=== PATIENT | female | born 1995 | race Caucasian/White ===

== ENCOUNTER 2020-07-25 01:05 | Emergency (ER) | payer OTHER ==
[~2020-07-25] VITALS: Ht 160 cm; Wt 108.9 kg
[2020-07-25 01:13] VITALS: BP 114/68
== END 2020-07-25 02:08 | disposition home or self-care (01) ==
LOC: ER 01:15
DX: Z20.822 Contact with and (suspected) exposure to COVID-19 (principal)
CPT/HCPCS: 99283; C9803; U0003

== ENCOUNTER 2020-08-03 01:02 | Emergency (ER) | payer OTHER ==
[~2020-08-03] VITALS: Ht 160 cm; Wt 108.9 kg
[2020-08-03 01:04] VITALS: BP 132/64
== END 2020-08-03 01:32 | disposition home or self-care (01) ==
LOC: ER 01:04
DX: Z20.822 Contact with and (suspected) exposure to COVID-19 (principal)
CPT/HCPCS: 99283; C9803; U0003

== ENCOUNTER 2020-08-08 02:09 | Emergency (ER) | payer OTHER ==
[~2020-08-08] VITALS: Ht 160 cm; Wt 108.9 kg
[2020-08-08 02:15] VITALS: BP 125/61
== END 2020-08-08 02:37 | disposition home or self-care (01) ==
LOC: ER 02:09
DX: Z20.822 Contact with and (suspected) exposure to COVID-19 (principal)
CPT/HCPCS: 99283; C9803; U0003

== ENCOUNTER 2020-08-17 02:40 | Emergency (ER) | payer OTHER ==
[~2020-08-17] VITALS: Ht 160 cm; Wt 108.9 kg
[2020-08-17 02:42] VITALS: BP 123/62
== END 2020-08-17 03:47 | disposition home or self-care (01) ==
LOC: ER 02:41
DX: Z20.822 Contact with and (suspected) exposure to COVID-19 (principal)
CPT/HCPCS: 99283; C9803; U0003

== ENCOUNTER 2020-08-22 01:49 | Emergency (ER) | payer OTHER ==
[~2020-08-22] VITALS: Ht 160 cm; Wt 108.9 kg
[2020-08-22 01:51] VITALS: BP 126/61
== END 2020-08-22 02:14 | disposition home or self-care (01) ==
LOC: ER 01:50
DX: Z20.822 Contact with and (suspected) exposure to COVID-19 (principal)
CPT/HCPCS: 99283; C9803; U0003

== ENCOUNTER 2020-08-31 00:46 | Emergency (ER) | payer OTHER ==
[~2020-08-31] VITALS: Ht 162.6 cm; Wt 108.9 kg
[2020-08-31 00:47] VITALS: BP 125/61
== END 2020-08-31 01:11 | disposition home or self-care (01) ==
LOC: ER 00:48
DX: Z20.822 Contact with and (suspected) exposure to COVID-19 (principal)
CPT/HCPCS: 99283; C9803; U0003

== ENCOUNTER 2020-11-21 01:21 | Emergency (ER) | payer OTHER ==
[~2020-11-21] VITALS: Ht 162.6 cm; Wt 108.9 kg
[2020-11-21 01:32] VITALS: BP 128/84
== END 2020-11-21 03:30 | disposition home or self-care (01) ==
LOC: ER 01:26
DX: Z20.822 Contact with and (suspected) exposure to COVID-19 (principal)
CPT/HCPCS: 99283; C9803; U0003